=== PATIENT | female | born 1985 | race Caucasian/White ===

== ENCOUNTER 2017-03-26 20:29 | Emergency (ER) | payer MEDICARE, MEDICAID ==
--- NOTE | 2017-04-03 14:50 | ER ---
ADMIT: 03/26/2017 RM/LOC: ER [facility] MR#: [id number] [address] [id number] [address] LAUR[address] [place] [address] Emergency Room Report SEX: F AGE: 31 : 1985 DATE: 03/26/2017 CHIEF COMPLAINT: Abdominal pain. 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 States this is especially worse when she laughs and moves. She is concerned about a muscle strain. Denies any sick travels. Primarily complains of lower abdominal pain, cramping and sharp in nature. No fevers chills, nausea, vomiting, diarrhea, loss of appetite, or back pain. Denies any known sick contacts. No blood in her stools. No vomiting. No problems with urination. She does have past medical history for disruptive disorder on several psych medications for this. Status post hysterectomy and tonsillectomy. COURSE IN THE EMERGENCY ROOM: The patient was seen and examined. PHYSICAL EXAMINATION: GENERAL: She is afebrile, nontoxic, in no acute distress. She is playing comfortably on her iPad. She is joking and laughing with the other person in the room. She is alert. HEENT: Head is normocephalic and atraumatic. Pharynx is not erythematous. NECK: Soft, supple. LUNGS: No respiratory distress. No wheezes, rhonchi, or rales. HEART: Regular rate and rhythm. No murmurs, gallops, or rubs. ABDOMEN: Soft. She does have some lower abdominal tenderness to palpation. No guarding or rebound. No abnormal bowel sounds. No McBurney's point tenderness. BACK: No CVA tenderness. SKIN: Warm and dry. EXTREMITIES: Nontender. NEUROLOGIC: She is alert and oriented x4. I did get a urine on her today. No signs of acute infection. Culture pending. Did give her 600 mg ibuprofen p.o., which she states improved her pain. IMPRESSION: Abdominal muscle strain. DISPOSITION: The patient was discharged to use Motrin 600 mg p.o. t.i.d. with food for the next 5 days. Apply heat. Follow up with her primary care provider as needed. Questions sought and answered to the best of ability and to the patient's satisfaction. Discharged in stable condition. MARBIN Richter / Carlos Kent MD / modl JOB #: [id number] CC: Carlos Kent MD, Attending Physician ADMIT: 03/26/2017 RM/LOC: [facility] MR#: [id number] [address] [place] [id number] [address] LAURENT [address] [place] [address] Emergency Room Report SEX: F AGE: 31 : 1985 Katarzyna Shannon PA-C, Family Physician
== END 2017-03-26 22:25 | disposition home or self-care (01) ==
LOC: ER 20:29
DX: S39.011A Strain of muscle, fascia and tendon of abdomen, initial encounter (principal); X50.0XXA Overexertion from strenuous movement or load, initial encounter; Y93.89 Activity, other specified; Z90.710 Acquired absence of both cervix and uterus; Z90.89 Acquired absence of other organs